=== PATIENT | female | born 1960 | race American Indian/Alaskan Native ===

== ENCOUNTER 2016-10-24 08:14 | Emergency (ER) | payer OTHER ==
[2016-10-24 08:44] LABS: Basophils % (Auto) 0.4 % (0.0-1.8); Eosinophils % (Auto) 1.9 % (0.0-4.3); Hematocrit 43.5 % (30.3-42.9); Hemoglobin 14.9 gm/dl (10.1-14.3); Mean Corpuscular HGB Conc 34 % (30-34); Mean Corpuscular Hemoglobin 29 pg (28-32); Mean Corpuscular Volume 85 fl (79-97); Platelet Count 182 K/mm3 (140-440); Red Blood Count 5.13 M/mm3 (3.65-5.03); Red Cell Distribution Width 13.7 % (13.2-15.2); White Blood Count 6.8 K/mm3 (4.5-11.0)
[2016-10-24 09:03] LABS: Albumin 4.2 g/dL (3.9-5); Albumin/Globulin Ratio 1.3 %; Alkaline Phosphatase 46 units/L (35-129); BUN/Creatinine Ratio 11.11; Blood Urea Nitrogen 10 mg/dL (7-17); Calcium 9.6 mg/dL (8.4-10.2); Carbon Dioxide 19 mmol/L (22-30); Glucose 180 mg/dL (65-100); Lipase 28 units/L (13-60); Sodium 142 mmol/L (137-145); Total Protein 7.4 g/dL (6.3-8.2)
[2016-10-24] MEDS ORDERED: SUBLIMAZE IV ONE ×2 (09:07→12:07)
[2016-10-24] MEDS ORDERED: ZOFRAN IV ONE (09:07)
[2016-10-24 09:14] LABS: Alanine Aminotransferase 11 units/L (7-56); Anion Gap 24 mmol/L
[2016-10-24 09:15] LABS: Potassium 3.9 mmol/L (3.6-5.0)
--- NOTE | 2016-10-24 09:16 | Emergency Department Report ---
HPI - General Chief Complaint: Abdominal Pain Time Seen by Provider: 10/24/16 09:02 - [facility] HPI: Room 22 The patient is a 56-year-old female presenting with a chief complaint of right flank pain. The patient states her right flank pain awakened her this morning at 06:30 associated with significant nausea and vomiting. Family states the patient was diaphoretic. Patient denies hematuria or dysuria. The patient states she's had a similar episode of this pain "a couple of months ago" but it only lasted 5 minutes and then resolved. The patient never sought medical attention because the episode was so brief. The patient currently gives her pain a score of 10/10 Location: Right flank Duration: Constant since 06:30 Quality: Pain Severity: 10/10 Modifying factors: [see above] Context: [see above] Mode of transportation: [not driving] ED Past Medical Hx - Past Medical History Previous Medical History?: Yes Additional medical history: Vaginal dleivery x 2 - Surgical History Past Surgical History?: Yes Additional Surgical History: Bilateral tubal ligation - Family History Family history: no significant - Social History Smoking Status: Never Smoker Substance Use Type: None - Medications Home Medications: Home Medications Medication Instructions Recorded Confirmed Last Taken Type HYDROcodone/APAP 5-325 [Alberta 1 - 2 each PO Q6HR PRN #20 tablet 10/24/16 Unknown Rx 5/325] Ibuprofen [Motrin 800 MG tab] 800 mg PO Q8HR PRN #20 tablet 10/24/16 Unknown Rx ED Review of Systems ROS: Stated complaint: RT SIDE PAIN/NAUSEA Other details as noted in HPI Comment: All other systems reviewed and negative Constitutional: diaphoresis Eyes: denies: eye pain, eye discharge, vision change ENT: denies: ear pain, throat pain Respiratory: denies: cough, shortness of breath, wheezing Cardiovascular: denies: chest pain, palpitations Endocrine: no symptoms reported Gastrointestinal: abdominal pain, nausea, vomiting Genitourinary: denies: dysuria, hematuria Musculoskeletal: back pain Skin: denies: rash, lesions Neurological: denies: headache, weakness, paresthesias Psychiatric: denies: anxiety, depression Hematological/Lymphatic: denies: easy bleeding, easy bruising Physical Exam - Physical Exam Vital Signs: Vital Signs 10/24/16 10/24/16 10/24/16 08:24 08:32 08:33 Temperature 97.5 F L Pulse Rate 47 L 46 L 53 L Respiratory 24 18 30 H Rate Blood Pressure 157/90 O2 Sat by Pulse 96 100 Oximetry 10/24/16 10/24/16 10/24/16 08:34 08:35 08:37 Temperature Pulse Rate 43 L 43 L 59 L Respiratory 25 H 28 H 32 H Rate Blood Pressure 160/91 160/91 160/91 O2 Sat by Pulse 100 100 100 Oximetry 10/24/16 08:47 Temperature Pulse Rate Respiratory 32 H Rate Blood Pressure O2 Sat by Pulse 100 Oximetry Physical Exam: GENERAL: The patient is well-developed well-nourished female lying on stretcher appearing to be in moderate discomfort. [] HEENT: Normocephalic. Atraumatic. Extraocular motions are intact. Patient has moist mucous membranes. NECK: Supple. Trachea midline CHEST/LUNGS: Clear to auscultation. There is no respiratory distress noted. HEART/CARDIOVASCULAR: Regular. There is no tachycardia. There is no gallop rub or murmur. ABDOMEN: Abdomen is soft, nontender to palpation. There is no rebound or guarding. Patient has normal bowel sounds. There is no abdominal distention. SKIN: There is no rash. There is no edema. There is no diaphoresis. NEURO: The patient is awake, alert, and oriented. The patient is cooperative. The patient has normal speech MUSCULOSKELETAL: There is no evidence of acute injury. 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 Mg-pelvic ultrasound and CT findings were reviewed. States that the patient can follow up with her as an outpatient ED Medical Decision Making - Lab Data Result diagrams: 10/24/16 08:31 10/24/16 08:31 Laboratory Tests 10/24/16 10/24/16 08:31 08:31 WBC 6.8 RBC 5.13 H Hgb 14.9 H Hct 43.5 H MCV 85 MCH 29 MCHC 34 RDW 13.7 Plt Count 182 Lymph % (Auto) 41.0 H [place] % (Auto) 8.5 H Eos % (Auto) 1.9 Baso % (Auto) 0.4 Lymph # 2.8 [place] # 0.6 Eos # 0.1 Baso # 0.0 Seg Neutrophils % 48.2 Seg Neutrophils # 3.3 Sodium 142 Potassium 3.9 Chloride 103.0 Carbon Dioxide 19 L Anion Gap 24 BUN 10 Creatinine 0.9 Estimated GFR > 60 BUN/Creatinine Ratio 11.11 Glucose 180 H Calcium 9.6 Total Bilirubin 0.50 AST 23 ALT 11 Alkaline Phosphatase 46 Total Protein 7.4 Albumin 4.2 Albumin/Globulin Ratio 1.3 Lipase 28 - EKG Data -: EKG Interpreted by [place] EKG shows normal: sinus rhythm Rate: bradycardia (57 bpm) - EKG Data When compared to previous EKG there are: previous EKG unavailable - Radiology Data Radiology results: report reviewed (CT abdomen and pelvis without contrast, CT abdomen and pelvis with IV contrast, pelvic ultrasound), image reviewed (CT abdomen and pelvis without contrast, CT abdomen and pelvis with IV contrast, pelvic ultrasound) CT abdomen and pelvis without contrast (read by radiologist)- CT abdomen and pelvis with IV contrast (read by radiologist)-nonenhancing huge cystic mass in the right abdomen. This could be ovarian in origin. Mesenteric cyst is also within the differential diagnosis. Multiple small renal cysts. Fibroid uterus. Small bilateral pleural effusions. Discussed with Dr. Webster and he states the visualized vasculature is normal pelvic ultrasound (read by radiologist)- uterine fibroid disease. Large unilocular right adnexal cyst or cystic lesion. Spectral Doppler interrogation cannot be utilized. Slightly thickened endometrium containing fluid. - Medical Decision Making I discussed with the patient at length the importance of follow-up with a equipment oiler. I explained that her ultrasound and CT findings may be secondary to cancer and that this must be determined as soon as possible. Patient verbalized understanding that she needs prompt follow-up with gynecology. Patient verbalized understanding that findings may represent cancer - Differential Diagnosis renal colic, UTI, pyelonephritis, biliary colic Critical care attestation.: If time is entered above; I have spent that time in minutes in the direct care of this critically ill patient, excluding procedure time. ED Disposition Clinical Impression: Right flank pain, Adnexal mass Disposition: TO HOME OR SELFCARE Is pt being admited?: No Does the pt Need Aspirin: No Condition: Stable Instructions: Abdominal Pain (ED), Ovarian Cancer (ED) Additional Instructions: Return to the emergency department immediately should you develop worsening symptoms, fever, inability to tolerate food or liquid or any other concerns. Prescriptions: HYDROcodone/APAP 5-325 [Alberta 5/325] 1 - 2 each PO Q6HR PRN #20 tablet PRN Reason: Pain Ibuprofen [Motrin 800 MG tab] 800 mg PO Q8HR PRN #20 tablet PRN Reason: Pain Referrals: DAVID HOPE MD [Staff Physician] - [facility] (Dr. Dr. Hope is an OB/ SURVEYOR. It is very important that you follow up with her for further evaluation of your right adnexal mass) Time of Disposition: 12:22
--- NOTE | 2016-10-24 09:40 | Cat Scan Report ---
CT OF THE ABDOMEN AND PELVIS WITHOUT CONTRAST HISTORY: Right flank pain, nausea and vomiting. TECHNIQUE: Helical CT without contrast. Sagittal and coronal reformatted images. FINDINGS: No comparison. The uterus is enlarged and lobular consistent with fibroid disease. Uterine fibroids measure up to 7 cm in diameter. One of the fibroids demonstrate calcific degeneration. The left adnexa is unremarkable. There is a large unilocular cyst arising from the right adnexal region measuring 15 x 14 x 9 cm. No obvious internal calcifications or septation. The liver, biliary system, pancreas, spleen, kidneys, adrenal glands and bowel loops are unremarkable. Normal appendix. The bladder is unremarkable. No evidence for ascites, acute inflammation or adenopathy. Heart size is normal. There are small bilateral layering pleural effusions. The bony structures are within normal limits. IMPRESSION: Uterine fibroid disease. Large cystic mass which appears to arise from the right adnexa. Cystic ovarian neoplasm cannot be excluded. Small bilateral pleural effusions.
[2016-10-24] MEDS ORDERED: NACL ONE (10:02)
--- NOTE | 2016-10-24 10:52 | Ultrasound Report ---
ULTRASOUND PELVIC COMPLETE ULTRASOUND TRANSVAGINAL HISTORY: Right flank pain, right adnexal cystic mass on CT. TECHNIQUE: Transabdominal and transvaginal ultrasound with color doppler interrogation. CT abdomen and pelvis without contrast performed earlier today was reviewed. The uterus is enlarged and lobular measuring 15 x 8 x 13 cm. Multiple uterine fibroids are identified. A 6.7 x 5.9 cm fibroid is identified in the anterior fundal region. A 3.0 x 2.9 cm fibroid is identified in the mid fundus. A 4.7 x 5.1 cm fibroid is identified in the posterior fundal region. A 3.3 x 3.0 cm calcified fibroid is identified in the posterior wall. The endometrium contains a small amount of fluid. The endometrial stripe measures approximately 1 cm. No defined mass. The left ovary is not visualized. There is a large unilocular right ovarian cyst or cystic lesion measuring 14 x 13 x 10 cm. No definite soft tissue component could be identified for spectral Doppler interrogation. Evaluation for torsion could not be performed. IMPRESSION: Uterine fibroid disease. Large unilocular right adnexal cyst or cystic lesion as described. Spectral Doppler interrogation could not be utilized, see above. Slightly thickened endometrium containing fluid.
--- NOTE | 2016-10-24 11:33 | Cat Scan Report ---
CT of the abdomen and pelvis with IV contrast. History: Right flank pain. Findings: Comparison is made to the previous unenhanced study performed earlier on today's date. The large cystic mass in the right abdomen demonstrates no enhancement. No internal septations are identified. Uterine fibroids are again noted. No enhancing lesions are seen within the liver, spleen, or other abdominal viscera. Small bilateral renal cysts all of which measure less than 1 cm in diameter can be seen on this contrast enhanced study. There is no hydronephrosis. Multiple uterine fibroids are again noted. Bilateral pleural effusions are also again noted. Impression: #1. Nonenhancing huge cystic mass in the right abdomen. This could be ovarian in origin. Mesenteric cyst is also within the differential diagnosis. 2. Multiple small renal cysts. 3. Fibroid uterus. 4. Small bilateral pleural effusions.
[2016-10-24 12:06] VITALS: BP 137/90
[2016-10-24 12:31] LABS: Bilirubin,Urine NEG (Negative); Blood,Urine NEG (Negative); Ketones,Urine NEG (Negative); Leukocyte Esterase,Urine TR (Negative); Mucus,Urine FEW /HPF; Nitrite,Urine NEG (Negative); Protein,Urine <15 mg/dL mg/dL (Negative); Urobilinogen,Urine < 2.0 mg/dL (<2.0)
== END 2016-10-24 12:35 | disposition home or self-care (01) ==
LOC: ED 08:14
DX: N85.8 Other specified noninflammatory disorders of uterus (principal); Z98.51 Tubal ligation status
CPT/HCPCS: 36415; 74176; 74177; 76830; 76856; 80053; 81001; 83690; 85025; 93005; 93010; 96374; 96375; 96376; 99284; J2405; J3010; Q9967

== ENCOUNTER 2016-11-06 11:21 | Inpatient (IN) | payer OTHER ==
[2016-11-03 12:07] LABS: Basophils % (Auto) 0.2 % (0.0-1.8); Eosinophils % (Auto) 6.3 % (0.0-4.3); Hematocrit 39.6 % (30.3-42.9); Mean Corpuscular HGB Conc 33 % (30-34); Mean Corpuscular Hemoglobin 28 pg (28-32); Mean Corpuscular Volume 86 fl (79-97); Platelet Count 268 K/mm3 (140-440); Red Blood Count 4.61 M/mm3 (3.65-5.03); Red Cell Distribution Width 13.3 % (13.2-15.2); White Blood Count 9.6 K/mm3 (4.5-11.0)
[2016-11-06] MEDS ORDERED: XYLOCAINE MPF 2% ONE (11:35)
[2016-11-06] MEDS ORDERED: DIPRIVAN 10 MG/ML IV ONE (11:35)
[2016-11-06] MEDS ORDERED: DILAUDID ONE ×2 (11:35→16:43)
[2016-11-06] MEDS ORDERED: ZEMURON IV ONE (12:07)
--- NOTE | 2016-11-06 12:48 | History and Physical Report ---
History of Present Illness Date of examination: 11/06/16 Date of admission: 11/06/16 11:21 Chief complaint: adnexal mass and uterine fibroids History of present illness: 56y/o with a history of recent abdominal and pelvic pain. The patient was evaluated in the ED and was found to multiple uterine fibroids and an adnexal cyst on right measuring 14cm. She reports worsening in her pain and discomfort. She is experiencing pelvic pressure and pain. Tumor markers were performed that were within normal limits. The uterus measures 15cm in its largest dimension. 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 Social history: single - Obstetrical History : 3 Para: 2 Hx # Term Pregnancies: 2 Spontaneous Abortions: 1 Induced : 0 Number of Living Children: 2 Medications and Allergies Allergies Allergy/AdvReac Type Severity Reaction Status Date / Time No Known Allergies Allergy Verified 11/02/16 11:10 Home Medications Medication Instructions Recorded Confirmed Last Taken Type HYDROmorphone [Dilaudid] 4 mg PO Q6HR 11/02/16 11/02/16 Unknown History Review of Systems All systems: negative Gastrointestinal: abdominal pain Genitourinary: pelvic pain - Vital Signs Vital signs: Vital Signs Temp Pulse Resp BP 97.6 F 94 H 16 118/80 11/03/16 11:35 11/03/16 11:35 11/03/16 11:35 11/03/16 11:35 Temp Pulse Resp BP Pulse Ox 97.6 F 94 H 16 118/80 11/03/16 11:35 11/03/16 11:35 11/03/16 11:35 11/03/16 11:35 - Physical Exam Breasts: Positive: deferred Cardiovascular: Regular rate Lungs: Positive: Clear to auscultation Abdomen: Positive: tenderness, mass Adnexa: right: mass, tenderness Results Result Diagrams: 11/03/16 11:50 All other labs normal. Assessment and Plan - Patient Problems (1) Leiomyoma Current Visit: Yes Status: Acute Plan to address problem: proceed with a DAVIE/BSO (2) Pelvic pain in female Current Visit: Yes Status: Acute (3) Adnexal mass Current Visit: No Status: Acute
--- NOTE | 2016-11-06 12:58 | Anesthesia Day of Surgery ---
Anesthesia Day of Surgery - Day of Surgery Patient Examined: Yes Patient H&P Reviewed: Yes Patient is NPO: Yes
--- NOTE | 2016-11-06 12:58 | Anesthesia Consultation ---
Anesthesia Consult and Med Hx Date of service: 11/06/16 - Airway Anesthetic Teeth Evaluation: Good ROM Head & Neck: Adequate Mental/Hyoid Distance: Adequate Mallampati Class: Class II Intubation Access Assessment: Probably Good - Pulmonary Exam CTA: Yes - Cardiac Exam Cardiac Exam: RRR - Pre-Operative Health Status ASA Pre-Surgery Classification: ASA2 Proposed Anesthetic Plan: General - Pulmonary Hx Smoking: No - Cardiovascular System Hx Hypertension: No - Central Nervous System Hx Psychiatric Problems: No - Hematic Hx Anemia: No - Other Systems Hx Cancer: No Hx Obesity: Yes
[2016-11-06] MEDS ORDERED: VERSED IV NR (13:00)
[2016-11-06] MEDS ORDERED: PEPCID PO NR (13:00)
[2016-11-06] MEDS ORDERED: NEURONTIN PO NR (13:00)
[2016-11-06] MEDS ORDERED: NACL 0.9% 1000 ML 1,000 ML IV SCH (13:00)
[2016-11-06] MEDS ORDERED: ANCEF/STERILE WATER 2 GM/20 ML 2 GM/20 ML SYRINGE IV SCH (13:00)
[2016-11-06] MEDS ORDERED: METHYLENE BLUE ONE (13:15)
[2016-11-06] MEDS ORDERED: ACD-A 500 ML IV ONE (13:18)
[2016-11-06] MEDS ORDERED: SUBLIMAZE ONE ×2 (14:00)
--- NOTE | 2016-11-06 14:15 | Admit Criteria Form ---
Admission Criteria Documentation: AMBULATORY SURGERY EXCEPTION CRITERIA Ambulatory Surgery Exception Criteria ( Place 'X' for any and all applicable criteria): Surgery or procedure performed on ambulatory basis may require inpatient stay for[A] ANY ONE of the following(1)(2)(3)(4)(5)(6)(7)(8)(9): [X] I. A preoperative situation, condition, or finding that warrants inpatient stay as indicated by ANY ONE of the following: [X] a) Inpatient care needed because of severity of a disease or condition rather than the surgery (eg, severe cardiac or respiratory disease, severe infection) (15) (16 ) (17) (18) [] b) Emergent procedure (eg, angioplasty for acute ischemia)(19) [] c) Complex surgical approach or situation as indicated by ANY ONE of the following(3): [] i) Open approach needed instead of usual endoscopic, transcatheter, or other less invasive procedure [] ii) Difficult approach because of previous operation [] iii) Airway monitoring required after open neck procedures(20)(21) [] iv) Large mass requiring unusually extensive dissection [] v) Additional complicating feature requiring inpatient care (eg, drain management)(22(23): [] d) Major surgery in a pt with high anesthetic risk as indicated by ANY ONE of the following (2)(3)(5)(7)(8): [] i) ASA risk class III or higher (severe systemic disease impairing function) [D] [] ii) Advanced age (eg, older than 85 years)(14)(24) [] iii) Symptomatic heart failure(25) [] iv) Symptomatic asthma or COPD(8)(21) [] v) Morbid obesity with hemodynamic or respiratory problems(20)( 21)(26)(27) [] vi) Obstructive sleep apnea(20)(21) [] vii) Former premature infants who are younger than 60 weeks [] viii) High risk for severe postoperative abnormalities (eg, severe postoperative hypocalcemia after parathyroidectomy for severe hyperparathyroidism)(27)( 28) [] ix) Unstable angina(25) [] e) Drug-related risk requiring inpatient stay as indicated by ANY ONE of the following(5)(10)(14)(32)(33) [] i) Procedure requires discontinuing drugs or other therapy (eg , antiarrhythmic medication, antiseizure medication), which necessitates inpatient observation or treatment.(18)(31) [] ii) Major surgery and high risk drug use as indicated by ANY ONE of the following: [] 1) Active abuse of cocaine or similar drug [] 2) Monoamine oxidase inhibitor use [] 3) Other drug identified as posing risk [] f) Inadequate outpatient care situation as indicated by ANY ONE of the following(5)(10)(14)(32)(33) [] i) Patient lives remote from medical facility and procedure has urgent complication potential, and temporary nearby residence cannot be arranged [] ii) Patient will have postprocedure incapacitation and inadequate assistance at home, or alternative level of care cannot be arranged. [] iii) Patient will have long general anesthesia or procedure side effect resolution time, and competent person to stay with patient on first postoperative night at home or alternative level of care cannot be arranged. []iv) Other inadequate outpatient situation that cannot be handled by other means [] II. A perioperative event, condition, or finding that warrants inpatient stay as indicated by ANY ONE of the following (1)(2)(3): [] a) Inadequate physiologic recovery: cardiovascular, respiratory, or hemodynamic status not normal or near preoperative baseline(18) [] b) Hemodynamic instability [] c) Patient not alert with near normal or baseline mental status [] d) Temperature not normal or as expected and not appropriate for outpatient treatment of condition [] e) Ambulatory or appropriate activity level status not yet achieved post procedure [E](34)(35)(36) [] f) Operative site not appropriate (eg, unexpected or excessive drainage or bleeding) [] g) Postoperative effects not resolved or adequately managed (eg, significant pain or vomiting not appropriate for outpatient or next level of care)(10)(12) [] h) Complicating features requiring inpatient care as indicated by ANY ONE of the following(37): [] i) Severe complications of procedure (eg, bowel injury, airway compromise, vascular injury,severe hemorrhage) [] ii) Extensive (eg, dissection far beyond usual scope of procedure ) or prolonged (eg, 120 minutes beyond usual) surgery needed requiring inpatient postoperative care [] iii) Conversion to an open or complex procedure that requires inpatient care (eg, open vs laparoscopic cholecystectomy, abdominal vs vaginal hysterectomy)(38) [] iv) Comorbid condition or test result identified during or post procedure that requires inpatient care (7) [] v) Malignant hyperthermia(30) [] vi) Other complicating feature requiring inpatient care(22)(23) Inpatient stay may be needed until ALL of the following are present (1)(2)(3)(4) (5)(6)(10)(14)(33)(40): []a) Physiologic recovery: cardiovascular, respiratory, and hemodynamic status normal or near preoperative baseline []b) Hemodynamic stability []c) Patient alert, with near normal or baseline mental status []d) Temperature appropriate: patient afebrile or temperature appropriate for outpt treatment of condition []e) Activity level appropriate: ambulatory or appropriate activity level post procedure []f) Operative site appropriate as indicated by ALL of the following: []i) Site dry or with expected drainage []ii) Any blood noted is as expected for procedure. []g) Postoperative effects resolved or managed as indicated by ALL of the following: []i) Pain management appropriate for outpatient (or next level of) care(10) []ii) Minimal nausea and vomiting: if present, successfully treated with oral medication(12) []iii) Headache, dizziness, or drowsiness (if present) are mild. []h) Voiding status acceptable as indicated by ANY ONE of the following: []i) Voiding spontaneously []ii) No voiding but instructions given for follow-up in 6 to 8 hours []iii) Urinary catheter in place, and instructions given for follow-up []i) Complicating features requiring inpatient care manageable at a lower level of care(37) []j) Comorbid conditions manageable at a lower level of care(37) The original [employer] content created by [employer] has been revised. The portions of the content which have been revised are identified through the use of italic text or in bold, and [employer] has neither reviewed nor approved the modified material. All other unmodified content is copyright [employer]. Please see references footnoted in the original [employer] edition 2016 Admission Criteria Met: Yes
[2016-11-06] MEDS ORDERED: DECADRON ONE (15:00)
[2016-11-06] MEDS ORDERED: NACL 0.9% IR ONE (15:09)
[2016-11-06] MEDS ORDERED: METHYLENE BLUE IV ONE (15:10)
[2016-11-06] MEDS ORDERED: ROBINUL ONE (15:44)
[2016-11-06] MEDS ORDERED: BLOXIVERZ ONE (15:44)
[2016-11-06] MEDS ORDERED: ZOFRAN ONE (16:09)
[2016-11-06] MEDS ORDERED: NARCAN 0.4 MG/1 ML IV PRN (16:20)
--- NOTE | 2016-11-06 16:20 | Operative Report ---
Operative Report Operative Report: Date: 11/06/2016 Preoperative diagnosis: Leiomyoma; right adnexal mass Postoperative diagnosis: Same as above Procedure: Total abdominal hysterectomy; bilateral salpingo-oophorectomy; lysis of adhesions Surgeon: Estela Mg M.D. Insights Analyst: Tommy Quiroga MD Anesthesia: Gen. Endotracheal anesthesia Estimated blood loss: 400 mL Urine output: 125 mL IV fluids: 2000 mL Cell saver replacement: 175 mL Indication: 56-year-old 012 with the complaint of acute pelvic pain. Ultrasound demonstrated findings of multiple uterine fibroids and a 14 cm right adnexal cyst. Pathology: Uterus, cervix, bilateral tubes and ovaries Findings: An enlarged fibroid uterus with a right adnexal cyst reaching the liver edge. The ovarian cyst contained hemorrhagic fluid. Procedure: The risk and benefits and indications of the procedure were reviewed with the patient and informed consent was obtained the patient was taken to the operating room. The patient was placed in supine position and given general anesthesia. The patient was prepped and draped in a normal sterile fashion. A vertical skin incision was made down to the layer of the fascia which was nicked in the midline and extended laterally with the Bovie cautery. Superior aspect of the rectus fascia was grasped with [place] clamps 2 and the rectus muscles off sharply. This was performed in an inferior fashion as well. The rectus muscle in the midline and the peritoneum entered bluntly. The pelvis was examined with the following findings and enlarged fibroid uterus with multiple myomas. The right ovary was enlarged with findings of hemorrhagic fluid. Pelvic washings were obtained and sent to cytology. An O'Eddy-O'Miguel retractor was placed into the incision and the bowel packed away with moist laparotomy sponges. Secondary to the large size of the ovarian cyst could not be adequately elevated out of the pelvis. An incision was made in the cortex of the ovarian cyst and the ovarian fluid was drained. A Janki clamp was placed across the base of the ovarian cyst and the cyst was removed from the ovary. 2 Sloan clamps were placed on the cornua and used for retraction. The round ligaments on both sides were clamped transected with the Enseal device. The anterior leaf of the broad ligament was then incised with the Enseal along the bladder reflection to the midline from both sides the bladder was then gently dissected off the lower uterine segment and the cervix with a sponge stick. The infundibulopelvic ligament on both sides were doubly clamped transected and suture ligated with 0 Vicryl. Hemostasis was assured. The uterine vessels were then skeletonized bilaterally clamped with Itzel clamps transected and suture ligated with 0 Vicryl. The uterosacral ligaments were clamped similarly on both sides transected and suture ligated. The corpus of the uterus was amputated from the cervix in order to improve visualization. Along the lateral aspect of the cervix the straight Itzel clamps were used in order to transect the tissue from the broad ligament. The sponge stick was used to dissect the bladder reflection off of the cervix. Hysterectomy clamps were placed below the level of the cervix and the cervix was amputated from the vaginal cuff. The vaginal cuff edges were closed with a Itzel fixation stitch and interrupted [id number] stitches in the midline with 0 Vicryl. The pelvis was then copiously irrigated with normal saline. Tissell was applied to the surgical sites. All laparotomy sponges and instruments were then removed from the abdomen. An en bloc suture closure was performed with looped 0 PDS suture. The fascia and rectus muscle was incorporated in the closure. The subcutaneous adipose tissue was reapproximated with 3-0 Vicryl in a running fashion. The skin was reapproximated with sixto. Pressure dressing was applied to the incision. All sponge laps and needle counts were correct 2. Patient was then successfully extubated. The patient was taken to the recovery room in stable condition.
[2016-11-06] MEDS ORDERED: ZOFRAN IV PRN ×2 (16:21→16:49)
[2016-11-06] MEDS ORDERED: MOTRIN PO PRN (16:21)
[2016-11-06] MEDS ORDERED: TYLENOL PO PRN (16:21)
[2016-11-06] MEDS: DILAUDID IV PRN ×4 (16:45→17:30)
[2016-11-06] MEDS: TORADOL IV SCH (16:45)
[2016-11-06] MEDS ORDERED: MORPHINE PCA 30MG/30ML IV SCH (17:00)
[2016-11-06] MEDS ORDERED: DEMEROL ONE (17:03)
[2016-11-06] MEDS ORDERED: DEMEROL IV PRN (17:07)
--- NOTE | 2016-11-06 17:24 | Post Anesthesia Evaluation ---
- Post Anesthesia Evaluation Patient Participated: Yes Airway Patent: Yes Stable Respiratory Function: Yes Temp > 96.8F: Yes Pain Manageable: Yes Adequeate Hydration: Yes Anesthesia Complications: No Block Receding Appropriately: Not Applicable
[2016-11-06] MEDS: D5LR 1,000 ML IV SCH (18:42)
[2016-11-07] MEDS: TORADOL IV SCH ×2 (00:17→05:44)
[2016-11-07 04:05] LABS: Hematocrit 33.5 % (30.3-42.9); Hemoglobin 10.9 gm/dl (10.1-14.3)
[2016-11-07] MEDS: D5LR 1,000 ML IV SCH (05:45)
--- NOTE | 2016-11-07 08:43 | Progress Note ---
Subjective Date of service: 11/07/16 Principal diagnosis: post delivery, labor epidural Interval history: Patient seen post delivery day 1, comfortable, ambulating, and satisfied with effectiveness of epidural during delivery. Objective - Constitutional Vitals: Vital Signs - 12hr 11/06/16 11/07/16 11/07/16 22:00 00:00 00:10 Temperature 98.6 F Pulse Rate 76 Respiratory 18 16 18 Rate Blood Pressure 127/72 11/07/16 11/07/16 11/07/16 04:05 04:30 06:05 Temperature 98.6 F Pulse Rate 76 Respiratory 18 16 18 Rate Blood Pressure 128/78 - Labs CBC & Chem 7: 11/07/16 03:33
[2016-11-07] MEDS: DILAUDID PO PRN ×2 (09:09→15:16)
--- NOTE | 2016-11-07 12:27 | Progress Note ---
Assessment and Plan - Patient Problems (1) Leiomyoma Current Visit: Yes Status: Acute Plan to address problem: doing well routine postoperative care (2) Pelvic pain in female Current Visit: Yes Status: Acute (3) Adnexal mass Current Visit: No Status: Acute Subjective - Subjective Date of service: 11/07/16 Interval history: Patient without any significant complaints. Tolerating clear diet without difficulty. Pain well controlled Patient reports: appetite normal, pain well controlled Objective - Vital Signs Latest vital signs: Vital Signs Temp Pulse Resp BP Pulse Ox 11/07/16 12:04 18 11/07/16 08:25 98.1 F 74 20 100/64 11/07/16 08:00 20 11/07/16 06:05 18 11/07/16 04:30 98.6 F 76 16 128/78 11/07/16 04:05 18 11/07/16 00:10 18 11/07/16 00:00 98.6 F 76 16 127/72 11/06/16 22:00 18 11/06/16 20:13 16 11/06/16 19:30 98.6 F 81 16 148/74 11/06/16 18:00 97.8 F 74 18 163/93 11/06/16 17:45 97.2 F L 78 16 165/84 100 11/06/16 17:30 53 L 16 164/92 100 11/06/16 17:15 52 L 16 153/86 100 11/06/16 17:00 53 L 20 164/93 100 11/06/16 16:45 63 24 163/97 100 11/06/16 16:30 56 L 24 141/90 100 11/06/16 16:25 57 L 20 136/91 99 11/06/16 16:22 97.4 F L 78 15 145/84 97 11/06/16 12:50 98.8 F 66 20 147/78 99 Intake and Output 11/06/16 11/07/16 11/07/16 22:59 06:59 14:59 Intake Total 650 1000 520 Output Total 225 1700 5 Balance 425 -700 515 Intake: IV 650 1000 D5lr 1,000 ml @ 125 mls/ 1000 hr IV DIRECT VEENA Rx#: [id number] Oral 520 Output: Urine 225 1700 5 Indwelling Catheter 1700 5 Other: Total, Intake Amount 520 Total, Output Amount 800 5 Voiding Method Indwelling Catheter # Voids Indwelling Catheter 1 - Exam Incision: Present: dressed
[2016-11-07] MEDS: MILK OF MAGNESIA PO PRN ×2 (15:06→23:04)
[2016-11-08] MEDS: DILAUDID PO PRN ×3 (02:03→18:10)
[2016-11-08] MEDS: MILK OF MAGNESIA PO PRN (08:50)
--- NOTE | 2016-11-08 10:32 | Progress Note ---
Assessment and Plan - Patient Problems (1) Leiomyoma Current Visit: Yes Status: Acute Plan to address problem: will obtain IVP to rule out ureteral injury advance diet as tolerated will discharge home once tolerates regular diet (2) Pelvic pain in female Current Visit: Yes Status: Acute Subjective - Subjective Date of service: 11/08/16 Interval history: Patient has been unable to pass flatus. She tolerated a clear diet and is voiding without difficulty. Patient reports: appetite normal, voiding normally, pain well controlled, no flatus Objective - Vital Signs Latest vital signs: Vital Signs Temp Pulse Resp BP 11/08/16 08:00 98.5 F 75 18 123/77 11/08/16 04:30 98.4 F 76 20 123/67 11/08/16 00:00 98.6 F 68 20 130/84 11/07/16 20:15 98.6 F 79 20 131/79 11/07/16 17:02 97.7 F 70 22 118/80 11/07/16 12:33 98.2 F 72 20 94/70 11/07/16 12:04 18 Intake and Output 11/07/16 11/08/16 11/08/16 22:59 06:59 14:59 Intake Total 780 240 Output Total 700 Balance 80 240 Intake: Oral 780 240 Output: Urine 700 Void 700 Other: Total, Intake Amount 120 120 Total, Output Amount 200 Voiding Method Toilet Toilet # Voids Void 1 - Exam Abdomen: Present: normal appearance, soft Incision: Present: normal, dry
--- NOTE | 2016-11-08 15:34 | XRay Report ---
IVP. History: Post surgical ureteral injury. Findings: The collecting systems appear normal. Both ureters are identified throughout and appear normal. There is no extravasation of contrast material. The partially opacified bladder is unremarkable. Impression: Normal study with no evidence of ureteral injury.
--- NOTE | 2016-11-08 16:36 | Discharge Summary ---
Providers - Providers Date of Admission: 11/06/16 11:21 Date of discharge: 11/08/16 Attending physician: DAVID HOPE Primary care physician: ULICES MELARA Hospitalization Reason for admission: other (adnexal mass and uterine fibroids) Procedure: other (DAVIE/BSO) Incision: normal, dry Discharge diagnosis: other (adnexal mass and uterine fibroids) Hospital course: Patient was admitted the day of surgery and underwent a DAVIE/BSO. Please see operative note. Postoperative course was routine. The patient was discharged home when she met discharge criteria. Condition at discharge: Good Disposition: DC-01 TO HOME OR SELFCARE - Discharge Diagnoses (1) Leiomyoma Status: Acute (2) Pelvic pain in female Status: Acute Plan - Discharge Medications Prescriptions: Docusate Sodium [Colace] 100 mg PO BID PRN #60 capsule PRN Reason: Constipation Hydromorphone HCl [Dilaudid] 4 mg PO Q6H PRN #45 tablet PRN Reason: Pain Ibuprofen [Motrin] 800 mg PO Q8HR PRN #60 tablet PRN Reason: Pain - Provider Discharge Summary Activity: no sex for 6 weeks, no heavy lifting 4 weeks, no strenuous exercise Diet: routine Instructions: routine Additional instructions: [] Smoking cessation referral if applicable(refer to patient education folder for contact #) [] Refer to [facility] Booklet Call your doctor immediately for: * Fever > 100.5 * Heavy vaginal bleeding ( >1 pad per hour) * Severe persistent headache * Shortness of breath * Reddened, hot, painful area to leg or breast * Drainage or odor from incision. * Keep incision clean and dry at all times and follow doctor's instructions regarding bathing/showering Follow-up in [address] Mg - Follow up plan
[2016-11-08 19:09] VITALS: BP 139/89
== END 2016-11-08 19:45 | disposition home or self-care (01) | DRG 742 ==
LOC: 3A 11:21 → OB 17:30
PROVIDERS: ADMIT Obstetrics & Gynecology; ATTEND Obstetrics & Gynecology
PROC: 0UT90ZZ Resection of Uterus, Open Approach (ICD-10-PCS; principal; 2016-11-06)
PROC: 0UTC0ZZ Resection of Cervix, Open Approach (ICD-10-PCS; 2016-11-06)
PROC: 0UT70ZZ Resection of Bilateral Fallopian Tubes, Open Approach (ICD-10-PCS; 2016-11-06)
PROC: 0UT20ZZ Resection of Bilateral Ovaries, Open Approach (ICD-10-PCS; 2016-11-06)
DX: D25.9 Leiomyoma of uterus, unspecified (principal); N83.511 Torsion of right ovary and ovarian pedicle
CPT/HCPCS: 36415; 74400; 81025; 85014; 85018; 85025; 86850; 86900; 86901; 88112; 88305; 88307; C9250; J0690; J1100; J1170; J1885; J2175; J2250; J2270; J2405; J2704; J2710; J3010; J7030; J7121; Q9967; Q9968

== ENCOUNTER 2021-09-25 16:29 | Emergency (ER) | payer OTHER ==
[2021-09-25 23:39] LABS: Bilirubin,Urine NEG (Negative); Blood,Urine LG (Negative); Color,Urine Yellow (Yellow); Urobilinogen,Urine < 2.0 mg/dL (<2.0)
[2021-09-26 00:13] LABS: Bacteria,Urine 3+ /HPF (Negative)
[2021-09-26 00:16] LABS: RBC,Urine > 182.0 /HPF (0.0-6.0); WBC,Urine > 182.0 /HPF (0.0-6.0)
[2021-09-26 01:07] VITALS: BP 136/87
[2021-09-26] MEDS ORDERED: LIDOCAINE-MPF (1%) 10 MG/1 ML VIAL 5 ML INFILTRATI ONE (01:31)
--- NOTE | 2021-09-26 02:17 | Emergency Department Report ---
ED Female HPI - General Chief complaint: Urogenital-Female Stated complaint: URINE INFECTION Time Seen by Provider: 09/26/21 00:14 Source: patient, family Mode of arrival: Ambulatory Limitations: No Limitations - History of Present Illness MD Complaint: dysuria -: Gradual Location: suprapubic Radiation: suprapubic Severity: mild, moderate Quality: burning Consistency: constant Worsens with: urination Are you Now?: No Associated Symptoms: dysuria, hematuria. denies: vaginal bleeding, abdominal pain, nausea/vomiting - Related Data Home Medications Medication Instructions Recorded Confirmed Last Taken HYDROmorphone [Dilaudid] 4 mg PO Q6HR 11/02/16 11/06/16 Unknown Previous Rx's Medication Instructions Recorded Last Taken Type Docusate Sodium [Colace] 100 mg PO BID PRN #60 capsule 11/08/16 Unknown Rx Hydromorphone HCl [Dilaudid] 4 mg PO Q6H PRN #45 tablet 11/08/16 Unknown Rx Ibuprofen [Motrin] 800 mg PO Q8HR PRN #60 tablet 11/08/16 Unknown Rx Allergies Allergy/AdvReac Type Severity Reaction Status Date / Time hydrocodone AdvReac Rash Verified 11/06/16 13:16 ED Review of Systems ROS: Stated complaint: URINE INFECTION Other details as noted in HPI Comment: All other systems reviewed and negative ED Past Medical Hx - Past Medical History Hx Hypertension: No Hx Headaches / Migraines: Yes (migraines) Hx HIV: No Additional medical history: Vaginal dleivery x 2 - Surgical History Hx Breast Surgery: Yes (biopsy left breast (benign)) Additional Surgical History: Bilateral tubal ligation - Social History Smoking Status: Never Smoker - Medications Home Medications: Home Medications Medication Instructions Recorded Confirmed Last Taken Type HYDROmorphone [Dilaudid] 4 mg PO Q6HR 11/02/16 11/06/16 Unknown History Docusate Sodium [Colace] 100 mg PO BID PRN #60 capsule 11/08/16 Unknown Rx Hydromorphone HCl [Dilaudid] 4 mg PO Q6H PRN #45 tablet 11/08/16 Unknown Rx Ibuprofen [Motrin] 800 mg PO Q8HR PRN #60 tablet 11/08/16 Unknown Rx ED Physical Exam - General Limitations: No Limitations General appearance: alert, in no apparent distress - Head Head exam: Present: atraumatic, normocephalic - Eye Eye exam: Present: normal appearance - ENT ENT exam: Present: mucous membranes moist - Neck Neck exam: Present: normal inspection - Respiratory Respiratory exam: Present: normal lung sounds bilaterally. Absent: respiratory distress - Cardiovascular Cardiovascular Exam: Present: regular rate, normal rhythm. Absent: systolic murmur, diastolic murmur, rubs, gallop - GI/Abdominal GI/Abdominal exam: Present: soft, tenderness, normal bowel sounds - Extremities Exam Extremities exam: Present: normal inspection - Back Exam Back exam: Present: normal inspection - Neurological Exam Neurological exam: Present: alert, oriented X3 - Psychiatric Psychiatric exam: Present: normal affect, normal mood - Skin Skin exam: Present: warm, dry, intact, normal color. Absent: rash ED Course Vital Signs 09/25/21 09/26/21 22:52 01:05 Temperature 98.9 F 98.1 F Pulse Rate 64 52 L Respiratory 16 18 Rate Blood Pressure 154/91 Blood Pressure 136/87 [Left] O2 Sat by Pulse 98 100 Oximetry ED Medical Decision Making - Medical Decision Making This patient presents to the emergency department with symptoms consistent with acute uncomplicated cystitis. No systemic symptoms. Not septic. She is well- appearing. Low suspicion for acute pyelonephritis given the lack of fever, CVA tenderness, or systemic features. Low suspicion for for kidney stone or infected stone. Not in age range for and her history and and presenta tion are complicated. No no indications for labs or imaging at this time. Critical care attestation.: If time is entered above; I have spent that time in minutes in the direct care of this critically ill patient, excluding procedure time. ED Disposition Clinical Impression: UTI (urinary tract infection) Disposition: HOME / SELF CARE / HOMELESS Is pt being admited?: No Does the pt Need Aspirin: No Condition: Stable Instructions: Urinary Tract Infection, Adult, Urodynamic Testing, Antibiotic Medicine, Adult, [id number] Referrals: ULICES MEALRA MD [Primary Care Provider] - 3-5 Days
== END 2021-09-26 02:46 | disposition home or self-care (01) ==
LOC: ED 16:29
DX: N39.0 Urinary tract infection, site not specified (principal); G43.909 Migraine, unspecified, not intractable, without status migrainosus; Z98.890 Other specified postprocedural states; Z88.5 Allergy status to narcotic agent
CPT/HCPCS: 81001; 96372; 99283; J0696; J3490